=== PATIENT | female | born 1970 | race Caucasian/White ===

== ENCOUNTER 2018-02-07 12:51 | Emergency (ER) | payer MEDICAID, OTHER ==
[2018-02-07 13:21] VITALS: BP 94/65; PULSE 87; RESP 20; TEMP 98.1; O2SAT 98
--- NOTE | 2018-02-07 13:35 | C.PDOC ---
History Of Present Illness 47yo female, with history of sciatica, comes to ER complaining of low back pain radiating to her left leg. She reports typically using flexeril and lidoderm patches with relief, however states she ran out of her Flexeril 1 week ago. Patient states she previously worked standing up and now at her new job is sitting for long time periods of eduardo; thinks this may have aggravated her pain. Patient denies any trauma/falls, extremity weakness, sensory changes, bowel/ bladder incontinence, urinary retention, dysuria/hematuria, abdominal pain. Time Seen by Provider: 02/07/18 13:21 Chief Complaint (Nursing): Back Pain History Per: Patient History/Exam Limitations: no limitations Onset/Duration Of Symptoms: Days Current Symptoms Are (Timing): Still Present Quality Of Discomfort: "Pain" Severity: Moderate Previous Symptoms: Back Pain Associated Symptoms: None. denies: Incontinence, New Weakness, New Numbness Additional History Per: Patient Past Medical History Reviewed: Historical Data, Nursing Documentation, Vital Signs Vital Signs: Last Vital Signs Temp 98.1 F 02/07/18 13:21 Pulse 87 02/07/18 13:21 Resp 20 02/07/18 13:21 BP 94/65 L 02/07/18 13:21 Pulse Ox 98 02/07/18 14:00 - Medical History PMH: Hypothyroidism, Chronic Pain (sciatica) Surgical History: No Surg Hx Family History: States: No Known Family Hx - Social History Hx Tobacco Use: No Hx Alcohol Use: No Hx Substance Use: No - Immunization History Hx Tetanus Toxoid Vaccination: No Hx Influenza Vaccination: Yes Hx Pneumococcal Vaccination: No Review Of Systems Constitutional: Negative for: Fever Gastrointestinal: Negative for: Nausea, Vomiting, Abdominal Pain, Diarrhea Genitourinary: Negative for: Dysuria, Incontinence, Hematuria, Vaginal Discharge , Vaginal Bleeding Musculoskeletal: Positive for: Back Pain Skin: Negative for: Rash Neurological: Negative for: Weakness, Numbness, Incoordination, Dizziness Physical Exam - Physical Exam Appears: Non-toxic, In Acute Distress (in mild pain) Skin: Normal Color, Warm, Dry, No Rash Head: Normacephalic Eye(s): bilateral: Normal Inspection Oral Mucosa: Moist Cardiovascular: Rhythm Regular Respiratory: Normal Breath Sounds, No Rales, No Rhonchi, No Wheezing Gastrointestinal/Abdominal: Normal Exam, Bowel Sounds, Soft, No Tenderness Back: No CVA Tenderness, No Vertebral Tenderness, Paraspinal Tenderness (mild paralumbar tenderness) Extremity: Normal ROM Extremity: Bilateral: Atraumatic, Normal Color And Temperature, Normal ROM Neurological/Psych: Oriented x3, Normal Motor, Normal Sensation Gait: Steady ED Course And Treatment O2 Sat by Pulse Oximetry: 98 (RA) Pulse Ox Interpretation: Normal Progress Note: Patient given PO Flexeril 10mg and IMToradol 30mg. On reassessment, patient reports feeling better and is ambulating normally in the ED. She was given Rxs for Naprosyn, Flexeril, and instructed to follow up 1-2 days. She understands she should return to ED if symptoms worsen. Reevaluation Time: 14:00 Reassessment Condition: Improved Disposition Counseled Patient/Family Regarding: Studies Performed, Diagnosis, Need For Followup, Rx Given - Disposition Referrals: Nir Todd [Staff Provider] - Disposition: HOME/ ROUTINE Disposition Time: 14:00 Condition: STABLE Additional Instructions: FOLLOW UP WITH YOUR DOCTOR IN 1-2 DAYS USE MEDICATIONS DIRECTED/NEEDED RETURN TO ER IF SYMPTOMS WORSEN Prescriptions: Cyclobenzaprine [Flexeril] 10 mg PO BID PRN #15 tab PRN Reason: Muscle Spasm Naproxen 375 mg PO BID PRN #20 tablet PRN Reason: pain Instructions: Sciatica (DC) Forms: [employer] (Armenian) Print Language: OCCITAN - Clinical Impression Clinical Impression: Sciatica, Low back pain - Scribe Statement The provider has reviewed the documentation as recorded by the Jeff Knott Provider Attestation: All medical record entries made by the Jeff were at my direction and personally dictated by me. I have reviewed the chart and agree that the record accurately reflects my personal performance of the history, physical exam, medical decision making, and the department course for this patient. I have also personally directed, reviewed, and agree with the discharge instructions and disposition.
== END 2018-02-07 14:10 | disposition home or self-care (01) ==
LOC: C.ER 12:51
DX: M54.40 Lumbago with sciatica, unspecified side (principal); E03.9 Hypothyroidism, unspecified
CPT/HCPCS: 96372; 99283; J1885